=== PATIENT | female | born 1990 | race Two or more races ===

== ENCOUNTER 2025-01-07 10:57 | Outpatient (AMB) | payer BC, SELFPAY ==
--- NOTE | 2025-01-07 11:27 | AMB.GYNCLNOT ---
Vital Signs 01/07/25 11:30 Height 1.57 m Height Method Stated Weight 78.471 kg Weight Measurement Method Standing Scale BMI 31.6 BP 114/69 Blood Pressure Source Automatic Cuff Blood Pressure Location Right Upper Arm Position Sitting Respiration 17 Pulse 77 Pulse Source Monitor Temp 97.9 F Temp Source Temporal Artery Scan Pulse Oximetry (%) 97 Oxygen Delivery Method Room Air Allergies/Home Meds Allergies & Medications Allergies No Known Allergies Allergy (Verified 01/07/25 11:34) Medication Reconciliation drospirenone 3 mg-ethinyl estradiol 0.03 mg tablet (Caryl (28)) 1 tab PO QDAY #84 tabs 01/07/25 [Rx] Intake Visit Data Collection New Patient or Established: New Patient (never been to [facility]) Reason for Visit:: CONTROL CONSULTATION Seen by Clinical Staff ONLY (RN/MA): No 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 Do You Feel Safe at Home: Yes Authorities Contacted: N/A PCP or OBGYN visit in last 3 months: No Hx Now: No Are you currently on any form of Control: No Last menstrual period: 12/28/24 Pain Present Currently: No Pain Scale Used: Lowe-Blandon/Numerical Pain scale:: 0 Smoking Status Smoking Status: Never smoker Tobacco Use: Cigarette Years smoked: 5 Are you interested in Quitting?: No Would you like additional Smoking Cessation Counseling?: No Second Operator history Second Operator History Menstrual regularity: irregular Flow: heavy Monthly: Yes How many days does period last: 10 Age at menarche: 12 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 1. Little interest or pleasure in doing things: not at all 2. Feeling down, depressed, or hopeless: not at all Total score: 0 PHQ-9 3. Trouble falling or staying asleep, or sleeping too much: Not at all 4. Feeling tired or having little energy: Not at all 5. Poor appetite or overeating: Not at all 6. Feeling bad about yourself - or that you are a failure or have let yourself or your family down: Not at all 7. Trouble concentrating on things, such as reading the newspaper or watching television: Not at all 8. Moving or speaking so slowly that other people could have noticed? - Or the opposite - being so fidgety or restless that you have been moving around a lot more than usual: not at all 9. Thoughts that you would be better off or of hurting yourself in some way: Not at all Total score: 0 If you checked off any problems, how difficult have these problems made it for you to do your work, take care of things at home, or get along with other people?: not difficult at all Source: Developed by Drs. Joaquín Baker, Gail Tsang, Matthew Justice and colleagues, with an educational monica from [employer]. Depression screen completed yes Social History Living Situation History Marital Status: Legally Lives With: Family Housing: House Tobacco History Smoking Status: Never smoker Second Hand Smoke Exposure: No Alcohol History Alcohol Intake: Current Alcohol Intake Frequency: holidays/special occasions only Domestic Abuse History Do You Feel Safe at Home: Yes History of Present Illness HPI Narrative 34-year-old 2 para 2 for control start. Last. December 28, 2024. She reports that her periods last 10 days and they are heavy. Previously treated with control pills and Mirena to manage heavy periods. The her Mirena came out and she has not been using control since. Reports having a new partner so she wants to start on control again. Patient denies social habits. Drinks occasional. x 2. Denies existence of any existing medical problems. Last sex was's November 29. Patient wants to start on control pills. Patient reports that after she is taken pills for a while she is like to switch to the Mirena again. Review of Systems Review of Systems Systems Reviewed: All systems reviewed, normal except as documented Exam General Limitations: no limitations General Appearance: alert, in no apparent distress, comfortable, cooperative, healthy appearing, well developed and well groomed Head Head exam: atraumatic, normocephalic and normal inspection Chest Chest inspection: Present normal inspection and symmetric chest wall rise Resp Respiratory exam: Present normal lung sounds bilaterally Card Cardiovascular exam: Present regular rate, normal rhythm and normal heart sounds Abdominal Abdominal exam: Present soft and normal bowel sounds Psych Psychiatric exam: Present normal affect and normal mood Results Objective Laboratory: negative preg test Office Procedures OB Clinic LOC & Office Proc's Nursing/Assessment Patient Status: Initial/New Patient OB Clinic Nursing Assessment: Medication Reconciliation, Update PMH in EMR and Vital Signs OB Clinic Coordination of Care: Complex Care and Chronic Disease 1-5, Consent,records obtained, informed consent, Education Simp Pt/Fam, Results/Orders obtained and Staff clarify orders New Patient Charge New Patient Point Assignment: 1089 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 condom x 2 week. review method and side effect. discuss mirena, side effect. reassured patient about 2 year old skin incision. rtc 3 month virtual. to evaluate BCP Additional Plan Follow Up: 3 Months (pill refill)
[2025-01-07 11:30] VITALS: BP 114/69; PULSE 77; RESP 17; TEMP 36.6; O2SAT 97; BMI 31.6
== END 2025-01-07 11:37 | disposition home or self-care (01) ==
LOC: HODSOBC 10:57
PROVIDERS: PCP Family Medicine; Referring Provider Family Medicine; Supervising Provider Advanced Practice Midwife; Visit Provider Advanced Practice Midwife
DX: Z30.011 Encounter for initial prescription of contraceptive pills (principal)
CPT/HCPCS: 81025; 99203; G0463